=== PATIENT | female | born 1970 | race Caucasian/White ===

== ENCOUNTER 2017-08-03 07:21 | Day surgery (SDC) | payer OTHER ==
[~2017-08-03] VITALS: Ht 154.9 cm; Wt 62.6 kg
[~2017-08-03 07:21] MED LIST: ACYC800; ALBU90OI6; ALBU90OI61; AMIT10; ASACOL HD800 MG PO; AZIT250 PO; Amoxicillin875 MG PO; Apriso0.375 GM; Apriso0.375 GM PO; BUTASPCAFT PO; CALCAVITD PO; CETI5 PO; CYAN1000I; CYCL10; CYCL10 PO; Chest Congesti400 MG; ERGO50000; Esgic Tablet1 EACH PO; FIORICET 50-301 EACH; FLUT.05NI; FOLI1; FOLI1 PO; HYDHOMSY PO; HYDR1TAB94; HYDR1TAB94 PO; INDO50 PO; LORA10 PO; MECL25 PO; MESA400ER PO; METPRE4DP PO; MONT10T; MONT10T PO; MULVITMINF PO; NAPR500; Naprosyn500 MG PO; Norco 5-325 Ta1 EACH PO; PANT40; PANT40 PO; PRED10 PO; Percocet 5-3251 EACH PO; Valium5 MG PO; Valtrex1000 MG; Vibramycin100 MG PO
[2017-08-03] MEDS ORDERED: CLARITIN10 MG (07:50)
== END 2017-08-03 09:36 | disposition home or self-care (01) ==
LOC: ORSCSDS 07:21
PROVIDERS: Internal Medicine Gastroenterology
PROC: 0DJD8ZZ Inspection of Lower Intestinal Tract, Via Natural or Artificial Opening Endoscopic (ICD-10-PCS; principal; 2017-08-03 08:30)
DX: K51.90 Ulcerative colitis, unspecified, without complications (principal); K57.30 Diverticulosis of large intestine without perforation or abscess without bleeding; Z86.010 Personal history of colon polyps
CPT/HCPCS: J7120

== ENCOUNTER → 2017-08-24 | Outpatient (CLI) | payer OTHER ==
[~2017-08-24] MED LIST changes: +CLARITIN10 MG
[2017-08-24 11:11] LABS: BASOPHILS ABSOLUTE AUTO 0.01 K/mm3 (0.00-0.23); BASOPHILS PERCENT AUTO 0 % (0-2); EOSINOPHILS ABSOLUTE AUTO 0.06 K/mm3 (0.00-0.68); EOSINOPHILS PERCENT AUTO 1 % (0-6); Hematocrit 38.9 % (33.0-51.0); Hemoglobin 13.2 g/dL (11.5-16.0); IMMATURE GRAN ABSOLUTE AUTO 0.01 K/mm3 (0.00-0.10); IMMATURE GRAN PERCENT AUTO 0 % (0-1); LYMPHOCYTES ABSOLUTE AUTO 0.92 K/mm3 (0.84-5.20); LYMPHOCYTES PERCENT AUTO 20 % (21-46); MONOCYTES ABSOLUTE AUTO 0.48 K/mm3 (0.16-1.47); MONOCYTES PERCENT AUTO 11 % (4-13); Mean Corpuscular HGB Conc 33.9 g/dL (31.5-36.5); Mean Corpuscular Volume 97 fL (80-100); Mean Platelet Volume 10.9 fL (9.1-12.4); NEUTROPHILS ABSOLUTE AUTO 3.07 K/mm3 (1.96-9.15); NEUTROPHILS PERCENT AUTO 68 % (41-73); Platelet Count 194 K/mm3 (150-400); RDW Coefficient Variation 12.6 % (11.7-14.2); RDW Standard Deviation 45.2 fL (35.1-46.3); White Blood Cell Count 4.55 K/mm3 (4.00-11.30)
[2017-08-24 11:25] LABS: Alanine Aminotransfer (ALT/SGP 21 U/L (12-78); Albumin, Blood 3.6 g/dL (3.4-5.0); Albumin/Globulin Ratio 0.9 (0.8-1.8); Alk Phos 60 U/L (40-126); Anion Gap 10 mmol/L (6-16); Aspartate Aminotrans (AST/SGOT 19 U/L (12-37); Bilirubin, Total 0.3 mg/dL (0.1-1.0); Blood Urea Nitrogen 12 mg/dL (8-24); CO2, Blood 26 mmol/L (21-32); Calcium, Blood 8.8 mg/dL (8.5-10.1); Chloride, Blood 104 mmol/L (98-108); Creatinine, Blood 0.75 mg/dL (0.40-1.00); Globulin, Blood 3.9 g/dL (2.2-4.0); Glomerular Filtration Rate >60 (60-); Glucose, Blood 102 mg/dL (70-99); Sodium, Blood 140 mmol/L (136-145); Total Protein, Blood 7.5 g/dL (6.4-8.2)
== END | disposition home or self-care (01) ==
LOC: LAB EV 11:08 → LAB SHORT 11:08
PROVIDERS: Family Medicine
DX: R10.9 Unspecified abdominal pain (principal)
CPT/HCPCS: 80053; 83690; 85025

== ENCOUNTER → 2018-03-15 | Outpatient (CLI) | payer OTHER | END | disposition home or self-care (01) | LOC: LAB SHORT 17:38 → LAB 17:38 | DX: A60.00 Herpesviral infection of urogenital system, unspecified (principal); B00.1 Herpesviral vesicular dermatitis; N89.8 Other specified noninflammatory disorders of vagina; E66.9 Obesity, unspecified | CPT/HCPCS: 87070; 87205 ==

== ENCOUNTER → 2018-05-03 | Outpatient (CLI) | payer OTHER ==
[2018-05-05 16:07] LABS: HPV 16 Negative (Negative); HPV 18 Negative (Negative); HPV OTHER HR TYPES Negative (Negative)
== END | disposition home or self-care (01) ==
LOC: LAB 18:54 → LAB SHORT 18:54
PROVIDERS: Nurse Practitioner Women's Health
DX: Z12.4 Encounter for screening for malignant neoplasm of cervix (principal); Z20.2 Contact with and (suspected) exposure to infections with a predominantly sexual mode of transmission; Z91.89 Other specified personal risk factors, not elsewhere classified
CPT/HCPCS: 87624; G0123

== ENCOUNTER 2018-06-21 21:28 | Emergency (ER) | payer OTHER ==
[~2018-06-21] VITALS: Ht 154.9 cm; Wt 71.2 kg
[2018-06-21] MEDS ORDERED: METPHE5 PO (21:41)
[2018-06-21] MEDS ORDERED: NYST237S MT (22:58)
== END 2018-06-22 01:27 | disposition home or self-care (01) ==
LOC: ER 21:28
DX: J02.9 Acute pharyngitis, unspecified (principal); Z79.899 Other long term (current) drug therapy; G43.909 Migraine, unspecified, not intractable, without status migrainosus
CPT/HCPCS: 70490; 99283-25; A9270-GY; J1100

== ENCOUNTER → 2018-06-30 | Outpatient (CLI) | payer OTHER ==
[~2018-06-30] MED LIST changes: +METPHE5 PO; +NYST237S MT
== END ==
LOC: LAB SHORT 18:29 → LAB 18:29
DX: Z51.81 Encounter for therapeutic drug level monitoring (principal); Z79.899 Other long term (current) drug therapy
CPT/HCPCS: G0480

== ENCOUNTER 2018-08-18 12:40 | Day surgery (SDC) | payer OTHER ==
[~2018-08-18] VITALS: Ht 154.9 cm; Wt 67.6 kg
[~2018-08-18 12:40] MED LIST changes: +ALBU90OI61 INH; +Loratadine10 MG PO; +METPHE10 PO; +MIRENA1 EACH VAG; +PANT20 PO; +Valtrex1000 MG PO
--- NOTE | 2018-08-18 13:16 | NUR ---
08/18/18 1316 Dimitris Sy IN LOBBY, UPDATED PT AND FAMILY MEMBER OF THE DELAY. BOTH STATE AN UNDERSTANDING.
== END 2018-08-18 18:10 | disposition home or self-care (01) ==
LOC: ORSCSDS 12:40
PROVIDERS: Internal Medicine Gastroenterology
PROC: 0DBH8ZX Excision of Cecum, Via Natural or Artificial Opening Endoscopic, Diagnostic (ICD-10-PCS; principal; 2018-08-18 14:15)
PROC: 0DBP8ZX Excision of Rectum, Via Natural or Artificial Opening Endoscopic, Diagnostic (ICD-10-PCS; principal; 2018-08-18 14:15)
PROC: 0DBM8ZX Excision of Descending Colon, Via Natural or Artificial Opening Endoscopic, Diagnostic (ICD-10-PCS; principal; 2018-08-18 14:15)
PROC: 0DBL8ZX Excision of Transverse Colon, Via Natural or Artificial Opening Endoscopic, Diagnostic (ICD-10-PCS; principal; 2018-08-18 14:15)
PROC: 0DB68ZX Excision of Stomach, Via Natural or Artificial Opening Endoscopic, Diagnostic (ICD-10-PCS; principal; 2018-08-18 14:15)
PROC: 0DBN8ZX Excision of Sigmoid Colon, Via Natural or Artificial Opening Endoscopic, Diagnostic (ICD-10-PCS; principal; 2018-08-18 14:15)
DX: K51.90 Ulcerative colitis, unspecified, without complications (principal); D12.4 Benign neoplasm of descending colon; D12.3 Benign neoplasm of transverse colon; K63.5 Polyp of colon; K62.1 Rectal polyp; K57.30 Diverticulosis of large intestine without perforation or abscess without bleeding; R11.2 Nausea with vomiting, unspecified; R07.0 Pain in throat; K25.9 Gastric ulcer, unspecified as acute or chronic, without hemorrhage or perforation; Z79.899 Other long term (current) drug therapy
CPT/HCPCS: 88305; 88342; J2704; J3010; J7120

== ENCOUNTER 2019-08-25 17:14 | Emergency (ER) | payer OTHER ==
[~2019-08-25] VITALS: Ht 154.9 cm; Wt 64.4 kg
== END 2019-08-25 21:11 | disposition home or self-care (01) ==
LOC: ER 17:14
DX: S05.02XA Injury of conjunctiva and corneal abrasion without foreign body, left eye, initial encounter (principal); Z79.899 Other long term (current) drug therapy; X58.XXXA Exposure to other specified factors, initial encounter
CPT/HCPCS: 99283

== ENCOUNTER 2020-12-11 21:41 | Inpatient (IN) | payer OTHER ==
[~2020-12-11] VITALS: Ht 154.9 cm; Wt 68.2 kg
[~2020-12-11 21:41] MED LIST changes: +ONDA4ODT MM
[2020-12-11 23:37] LABS: BASOPHILS ABSOLUTE AUTO 0.03 K/mm3 (0.00-0.23); BASOPHILS PERCENT AUTO 0 % (0-2); EOSINOPHILS ABSOLUTE AUTO 0.12 K/mm3 (0.00-0.68); EOSINOPHILS PERCENT AUTO 1 % (0-6); Hematocrit 39.2 % (33.0-51.0); IMMATURE GRAN ABSOLUTE AUTO 0.03 K/mm3 (0.00-0.10); IMMATURE GRAN PERCENT AUTO 0 % (0-1); LYMPHOCYTES ABSOLUTE AUTO 2.66 K/mm3 (0.84-5.20); LYMPHOCYTES PERCENT AUTO 22 % (21-46); MONOCYTES ABSOLUTE AUTO 0.93 K/mm3 (0.16-1.47); MONOCYTES PERCENT AUTO 8 % (4-13); Mean Corpuscular HGB 31.7 pg (26.0-34.0); Mean Corpuscular HGB Conc 33.2 g/dL (31.5-36.5); Mean Corpuscular Volume 96 fL (80-100); Mean Platelet Volume 12.1 fL (9.1-12.4); NEUTROPHILS ABSOLUTE AUTO 8.63 K/mm3 (1.96-9.15); NEUTROPHILS PERCENT AUTO 70 % (41-73); Platelet Count 315 K/mm3 (150-400); RDW Coefficient Variation 12.4 % (11.7-14.2)
[2020-12-11] MEDS ORDERED: METPHE20 PO (23:46)
[2020-12-11 23:49] LABS: Alanine Aminotransfer (ALT/SGP 32 U/L (12-78); Albumin, Blood 3.8 g/dL (3.4-5.0); Albumin/Globulin Ratio 0.8 (0.8-1.8); Alk Phos 61 U/L (50-136); Anion Gap 5 mmol/L (6-16); Aspartate Aminotrans (AST/SGOT 23 U/L (12-37); Bilirubin, Total 0.4 mg/dL (0.1-1.0); Blood Urea Nitrogen 11 mg/dL (8-24); Bun/Creatinine Ratio 14.1 (12.0-20.0); CO2, Blood 28 mmol/L (21-32); Chloride, Blood 105 mmol/L (98-108); Creatinine, Blood 0.78 mg/dL (0.40-1.00); Globulin, Blood 4.7 g/dL (2.2-4.0); Glomerular Filtration Rate >60 (60-); Glucose, Blood 99 mg/dL (70-99); Potassium, Blood 3.9 mmol/L (3.5-5.5); Sodium, Blood 138 mmol/L (136-145); Total Protein, Blood 8.5 g/dL (6.4-8.2)
[2020-12-12 02:12] LABS: SARS-Cov-2 (COVID-19) PCR, MMC NEGATIVE (NEGATIVE)
--- NOTE | 2020-12-12 04:56 | NUR ---
PATIENT ARRIVED TO ROOM 339 WITH ACUTE LEFT SIDED ABD PAIN THAT SHE'D HAD FOR ABOUT A WEEK. BRANDAN SHARES A HOME WITH HER MOTHER WHO WAS HOSPITALIZED LAST WEEK. SHE IS VERY ANXIOUS ABOUT THE LEVEL OF HER PAIN AND WORRIES THAT IT MAY GET WORSE. SHE SEES DR ATKINSON FOR HER ULCERATIVE COLITIS, AND WAS SUPPOSED TO SEE HIM NEXT WEEK. AFTER 0.25MCG DOSE OF FENTANYL ON ARRIVAL, PATIENT HAS BEEN NOSTLY SOMNOLENT
[2020-12-12 04:57] LABS: BASOPHILS ABSOLUTE AUTO 0.03 K/mm3 (0.00-0.23); BASOPHILS PERCENT AUTO 0 % (0-2); EOSINOPHILS ABSOLUTE AUTO 0.06 K/mm3 (0.00-0.68); EOSINOPHILS PERCENT AUTO 1 % (0-6); Hematocrit 36.7 % (33.0-51.0); Hemoglobin 12.1 g/dL (11.5-16.0); IMMATURE GRAN ABSOLUTE AUTO 0.04 K/mm3 (0.00-0.10); IMMATURE GRAN PERCENT AUTO 0 % (0-1); LYMPHOCYTES ABSOLUTE AUTO 1.79 K/mm3 (0.84-5.20); LYMPHOCYTES PERCENT AUTO 17 % (21-46); MONOCYTES PERCENT AUTO 8 % (4-13); Mean Corpuscular HGB 31.8 pg (26.0-34.0); Mean Corpuscular Volume 96 fL (80-100); Mean Platelet Volume 11.2 fL (9.1-12.4); NEUTROPHILS ABSOLUTE AUTO 7.88 K/mm3 (1.96-9.15); NEUTROPHILS PERCENT AUTO 74 % (41-73); Platelet Count 258 K/mm3 (150-400); RDW Coefficient Variation 12.4 % (11.7-14.2); RDW Standard Deviation 43.9 fL (35.1-46.3); Red Blood Cell Count 3.81 M/mm3 (3.80-5.20)
[2020-12-12 05:40] LABS: Alanine Aminotransfer (ALT/SGP 22 U/L (12-78); Albumin, Blood 3.2 g/dL (3.4-5.0); Albumin/Globulin Ratio 0.7 (0.8-1.8); Alk Phos 53 U/L (50-136); Anion Gap 6 mmol/L (6-16); Aspartate Aminotrans (AST/SGOT 11 U/L (12-37); Bilirubin, Total 0.5 mg/dL (0.1-1.0); Blood Urea Nitrogen 9 mg/dL (8-24); Bun/Creatinine Ratio 11.3 (12.0-20.0); CO2, Blood 25 mmol/L (21-32); Calcium, Blood 8.9 mg/dL (8.5-10.1); Chloride, Blood 108 mmol/L (98-108); Globulin, Blood 4.3 g/dL (2.2-4.0); Glomerular Filtration Rate >60 (60-); Glucose, Blood 124 mg/dL (70-99); Potassium, Blood 3.7 mmol/L (3.5-5.5); Sodium, Blood 139 mmol/L (136-145); Total Protein, Blood 7.5 g/dL (6.4-8.2)
--- NOTE | 2020-12-12 18:18 | NUR ---
Alert and oriented x3, continue on NS at 75ml/hr for hydration. Currently NPO. C/O left lower quadrant pain consistently with diverticulosis. Dilaudid was given for pain management , it was effective. vital signs are stable. Continue on ABO IV therapy , no adverse effects noted. one person assist with ADLS. Continue to monitor.
[2020-12-13 04:27] LABS: BASOPHILS ABSOLUTE AUTO 0.02 K/mm3 (0.00-0.23); BASOPHILS PERCENT AUTO 0 % (0-2); EOSINOPHILS ABSOLUTE AUTO 0.07 K/mm3 (0.00-0.68); EOSINOPHILS PERCENT AUTO 1 % (0-6); Hematocrit 34.8 % (33.0-51.0); Hemoglobin 11.5 g/dL (11.5-16.0); IMMATURE GRAN ABSOLUTE AUTO 0.01 K/mm3 (0.00-0.10); IMMATURE GRAN PERCENT AUTO 0 % (0-1); LYMPHOCYTES ABSOLUTE AUTO 2.13 K/mm3 (0.84-5.20); LYMPHOCYTES PERCENT AUTO 28 % (21-46); MONOCYTES ABSOLUTE AUTO 0.53 K/mm3 (0.16-1.47); MONOCYTES PERCENT AUTO 7 % (4-13); Mean Corpuscular HGB 31.7 pg (26.0-34.0); Mean Corpuscular Volume 96 fL (80-100); Mean Platelet Volume 11.2 fL (9.1-12.4); NEUTROPHILS ABSOLUTE AUTO 4.75 K/mm3 (1.96-9.15); NEUTROPHILS PERCENT AUTO 63 % (41-73); Platelet Count 228 K/mm3 (150-400); RDW Coefficient Variation 12.2 % (11.7-14.2); RDW Standard Deviation 42.9 fL (35.1-46.3); Red Blood Cell Count 3.63 M/mm3 (3.80-5.20); White Blood Cell Count 7.51 K/mm3 (4.00-11.30)
[2020-12-13 04:35] LABS: Anion Gap 8 mmol/L (6-16); Blood Urea Nitrogen 6 mg/dL (8-24); Bun/Creatinine Ratio 10.1 (12.0-20.0); CO2, Blood 24 mmol/L (21-32); Calcium, Blood 8.8 mg/dL (8.5-10.1); Chloride, Blood 109 mmol/L (98-108); Creatinine, Blood 0.59 mg/dL (0.40-1.00); Glomerular Filtration Rate >60 (60-); Glucose, Blood 74 mg/dL (70-99); Potassium, Blood 3.5 mmol/L (3.5-5.5); Sodium, Blood 141 mmol/L (136-145)
--- NOTE | 2020-12-13 08:52 | NUR ---
Dayana feeling better this evening. required medication once late in evening for abd pain. Ongoing headache was tolerable. Dayana had CBG of 79 this morning, and was still NPO for diverticulitis. MD notified and 1 amp of D 50 given to cover. No other changes overnight
--- NOTE | 2020-12-13 17:39 | NUR ---
SHIFT SUMMARY PATIENT IS PLEASENT AND ALERT AND ORIENTED X4. PATIENT HAS HAD NO COMPLAINTS OF PAIN, NAUSEA, VOMITTING. PATIENT HAS COMPLAINED OF ABDOMINAL CRAMPING AFTER CONSUMPTION OF CLEAR LIQUIDS. PATIENT STATED "IT HAS RESOLVED" PATIENT HAS TOLERATED CLEAR LIQUIDS WELL AND IS EAGER TO ADVANCEMENT OF DIET. VITAL SIGNS WNL. WILL CONTINUE TO MONITOR UNTIL END OF SHIFT.
--- NOTE | 2020-12-14 06:45 | NUR ---
SHIFT SUMMARY PATIENT ALERT AND ORIENTED. NO COMPLAINTS OF PAIN OR SHORTNESS OF BREATH. NO ACUTE ISSUES NOTED OVERNIGHT. CALL LIGHT WITHIN REACH. REPORT GIVEN TO ONCOMING RN.
--- NOTE | 2020-12-14 14:10 | NUR ---
TRANSFERING CARE. PT AOX4 AND COOPERATIVE OF CARE. PT STATED SHE STILL HAS MILD ABD PAIN, BUT STATED SHE DID NOT REQUIRE PAIN MEDICATON. PT HAS BEEN DRINKING HER CLEAR LIQUIDS. NO DISTRESS NOTED AND INDEPENDENT IN ROOM.
--- NOTE | 2020-12-14 18:26 | NUR ---
SHIFT SUMMARY PATIENT HAS BEEN PLEASENT AND COOPERATIVE WITH CARE THIS SHIFT. PATIENT IS A/OX4. PATIENT HAS BEEN TOLERATING CLEAR LIQUIDS WELL AND STATED "WANT TO BE MORE AGGRESSIVE WITH DIET BUT WILL TAKE IT SLOW FOR NOW". BED IN LOCKED AND LOWEST POSITION AND WILL CONTINUE TO MONITOR UNTIL END OF SHIFT.
--- NOTE | 2020-12-15 06:36 | NUR ---
SHIFT SUMMARY PATIENT ALERT AND ORIENTED. HAD NO COMPLAINTS OF PAIN OR SHORTNESS OF BREATH. NO ACUTE ISSUES OVERNIGHT. CALL LIGHT WITHIN REACH. REPORT GIVEN TO ONCOMING RN.
[2020-12-15] MEDS ORDERED: ONDA4ODT MM (11:50)
[2020-12-15] MEDS ORDERED: Acetaminophen650 M1 PO (11:51)
[2020-12-15] MEDS ORDERED: VISBIOME 112.51 EACH PO (11:52)
[2020-12-15] MEDS ORDERED: AUGMENTIN 500-1 EACH PO (11:55)
[2020-12-15] MEDS ORDERED: Norco 5-325 Ta1 EACH PO (11:56)
--- NOTE | 2020-12-15 13:46 | NUR ---
PT DISCHARGED AT 1315 WITH ALL PAPERWORK REVIEWED AND EDUCATIONAL MATERIAL SENT HOME. PT DENIED ANY PAIN AND WAS INDEPENDENT IN ROOM. NO DISTRESS NOTED AND ESCORTED OUT VIA WHEELCHAIR.
== END 2020-12-15 13:12 | disposition home or self-care (01) | DRG 392 ==
LOC: ER 21:41 → MEDS 12-12 01:50
PROVIDERS: Emergency Medicine; Internal Medicine; ADMIT Internal Medicine
DX: K57.32 Diverticulitis of large intestine without perforation or abscess without bleeding (principal); G43.909 Migraine, unspecified, not intractable, without status migrainosus; E86.0 Dehydration; Z79.899 Other long term (current) drug therapy; Z98.890 Other specified postprocedural states
CPT/HCPCS: 36415; 74176; 80048; 80053; 81025; 82947; 85025; 96365; 96375; 99285-25; A9270; J0295; J1170; J1650; J2543; J3010; J7030; J7050; U0004

== ENCOUNTER 2020-12-23 12:00 | Inpatient (IN) | payer OTHER ==
[~2020-12-23] VITALS: Ht 154.9 cm; Wt 64.5 kg
[~2020-12-23 12:00] MED LIST changes: +AUGMENTIN 500-1 EACH PO; +Acetaminophen650 M1 PO; +VISBIOME 112.51 EACH PO; -Valtrex1000 MG PO
[2020-12-23 13:13] LABS: Source, Urine Clean Catch
[2020-12-23 13:40] LABS: BASOPHILS ABSOLUTE AUTO 0.04 K/mm3 (0.00-0.23); BASOPHILS PERCENT AUTO 0 % (0-2); EOSINOPHILS ABSOLUTE AUTO 0.09 K/mm3 (0.00-0.68); EOSINOPHILS PERCENT AUTO 1 % (0-6); Hematocrit 39.4 % (33.0-51.0); IMMATURE GRAN ABSOLUTE AUTO 0.04 K/mm3 (0.00-0.10); IMMATURE GRAN PERCENT AUTO 0 % (0-1); LYMPHOCYTES ABSOLUTE AUTO 2.77 K/mm3 (0.84-5.20); LYMPHOCYTES PERCENT AUTO 29 % (21-46); MONOCYTES ABSOLUTE AUTO 0.57 K/mm3 (0.16-1.47); MONOCYTES PERCENT AUTO 6 % (4-13); Mean Corpuscular HGB 31.6 pg (26.0-34.0); Mean Corpuscular Volume 96 fL (80-100); Mean Platelet Volume 11.7 fL (9.1-12.4); NEUTROPHILS ABSOLUTE AUTO 5.93 K/mm3 (1.96-9.15); NEUTROPHILS PERCENT AUTO 63 % (41-73); Platelet Count 296 K/mm3 (150-400); RDW Coefficient Variation 12.4 % (11.7-14.2); RDW Standard Deviation 43.4 fL (35.1-46.3); Red Blood Cell Count 4.12 M/mm3 (3.80-5.20); White Blood Cell Count 9.44 K/mm3 (4.00-11.30)
[2020-12-23 13:42] LABS: Appearance, Urine Clear (Clear); Bilirubin, Urine Neg (Neg); Blood, Urine 2+ (Neg); Color, Urine Amber (P-Yellow); Glucose Qualitative, Urine Neg (Neg); Ketones, Urine Neg (Neg); Leukocyte Esterase, Urine 1+ (Neg); Nitrite, Urine Neg (Neg); Protein, Urine 1+ (Neg); Specific Gravity, Urine 1.015 (1.003-1.022); Urobilinogen, Urine NORM (Normal)
[2020-12-23 14:06] LABS: Alanine Aminotransfer (ALT/SGP 28 U/L (12-78); Albumin, Blood 3.7 g/dL (3.4-5.0); Albumin/Globulin Ratio 0.8 (0.8-1.8); Alk Phos 68 U/L (50-136); Anion Gap 8 mmol/L (6-16); Aspartate Aminotrans (AST/SGOT 16 U/L (12-37); Bilirubin, Total 0.6 mg/dL (0.1-1.0); Blood Urea Nitrogen 7 mg/dL (8-24); Bun/Creatinine Ratio 9.5 (12.0-20.0); CO2, Blood 27 mmol/L (21-32); Calcium, Blood 10.2 mg/dL (8.5-10.1); Chloride, Blood 104 mmol/L (98-108); Creatinine, Blood 0.74 mg/dL (0.40-1.00); Globulin, Blood 4.7 g/dL (2.2-4.0); Glomerular Filtration Rate >60 (60-); Glucose, Blood 93 mg/dL (70-99); Potassium, Blood 3.6 mmol/L (3.5-5.5); Sodium, Blood 139 mmol/L (136-145); Total Protein, Blood 8.4 g/dL (6.4-8.2)
[2020-12-23 14:19] LABS: Bacteria Few /hpf; Mucus Mod (0-Heavy); Squamous Epithelial Cells Few /hpf (Few)
[2020-12-23] MEDS ORDERED: Cetirizine HCl10 MG PO (16:33)
[2020-12-23] MEDS ORDERED: Valtrex1000 MG PO (16:35)
[2020-12-23] MEDS ORDERED: FAMO20 PO (16:35)
[2020-12-23] MEDS ORDERED: METPHE20 PO (16:36)
[2020-12-23] MEDS ORDERED: FOLI1 PO (16:36)
--- NOTE | 2020-12-23 18:37 | NUR ---
PT ADMITTED TO FLOOR AT 1805. STATES PAIN IN ABD. DID RECENTLY RECEIVE DILAUDID. NOT AVAIL UNTIL 1930. ABLE TO WALK TO BATHROOM SBA TO IND. IS NPO. H/R REG, NO MURMER NOTED. NO TELE. LUNGS CLEAR, RESP EASY. UNLABORED. ON R.A. BT HYPER. PT STATES WAS LIQUID DIET.AND WAS TOLD IN ER THAT DR JIMENES WOULD SEE TOMORROW. BED IN LOW POSITOIN, CALL LITE IN REACH, CALLS APPROP
--- NOTE | 2020-12-24 04:45 | NUR ---
SHIFT SUMMARY AOX4. VSS. 7TH EPISODE DIVERTICULITIS SINCE AUGUST PER PT. REPORTS 10/05 LUQ & LLQ ABD PAIN, MEDICATED 2X c 1MG IV DILAUDID & PT REPORTS PAIN LEVEL DROPPING 05/08, STATES TOLERABLE. DENIES NAUSEA DURING ASSESSMENT. ABD VERY TENDER TO PALPATION LEFT QUADRANTS. NO BM THIS SHIFT. CURRENTLY STRICT NPO PER DR COVINGTON ORDERS. GI CONSULTED. CALL LIGHT IN REACH & PT ABLE TO MAKE NEEDS KNOWN. WCTM.
[2020-12-24 05:12] LABS: Anion Gap 4 mmol/L (6-16); Blood Urea Nitrogen 9 mg/dL (8-24); Bun/Creatinine Ratio 13.1 (12.0-20.0); CO2, Blood 27 mmol/L (21-32); Calcium, Blood 9.3 mg/dL (8.5-10.1); Chloride, Blood 108 mmol/L (98-108); Creatinine, Blood 0.69 mg/dL (0.40-1.00); Glomerular Filtration Rate >60 (60-); Glucose, Blood 78 mg/dL (70-99); Sodium, Blood 139 mmol/L (136-145)
--- NOTE | 2020-12-24 17:22 | NUR ---
PATIENT IS ALERT AND ORIENTED X 4. SHE REPORTED ABD PAIN THIS AM AND WAS GIVEN DILAUDID. SHE REPORTED [place] 8/10 DUE TO DILAUDID AND WAS GIVEN FENTANYL BY NIGHT NURSE. HEADACHE SLOWLY RESOLVED. SHE WAS MEDICATED FOR NAUSEA THIS AM. AM MEDS WAS NOT ADMINISTERED DUE TO THE PATIENT STATING SHE COULD NOT TOLERATED THEM THIS MORNING. LATER AROUND LUNCH TIME THE PATIENT STATED SHE WAS STARTING TO FEEL BETTER HEADACHE AND NAUSEA WAS RESOLVED. SHE WAS ADVANCED TO CLEAR LIQ DIET. SHE IS OOB AD JUDY WITH ASSIST WITH IV IF NEEDED. SHE APPEARS TO BE IN IMPROVED MOOD THIS AFTERNOON. DIETITIAN SPOKE WITH THE PT ABOUT DIVERTICULITUS THIS AFTERNOON. SHE IS NOT IN ACUTE DISTRESS. WILL CONTINUE TO MONITOR.
[2020-12-25 05:24] LABS: BASOPHILS ABSOLUTE AUTO 0.03 K/mm3 (0.00-0.23); BASOPHILS PERCENT AUTO 1 % (0-2); EOSINOPHILS ABSOLUTE AUTO 0.09 K/mm3 (0.00-0.68); EOSINOPHILS PERCENT AUTO 1 % (0-6); Hematocrit 33.1 % (33.0-51.0); Hemoglobin 10.8 g/dL (11.5-16.0); IMMATURE GRAN ABSOLUTE AUTO 0.01 K/mm3 (0.00-0.10); IMMATURE GRAN PERCENT AUTO 0 % (0-1); LYMPHOCYTES ABSOLUTE AUTO 2.32 K/mm3 (0.84-5.20); LYMPHOCYTES PERCENT AUTO 36 % (21-46); MONOCYTES ABSOLUTE AUTO 0.53 K/mm3 (0.16-1.47); MONOCYTES PERCENT AUTO 8 % (4-13); Mean Corpuscular HGB 31.2 pg (26.0-34.0); Mean Corpuscular HGB Conc 32.6 g/dL (31.5-36.5); Mean Corpuscular Volume 96 fL (80-100); Mean Platelet Volume 11.9 fL (9.1-12.4); NEUTROPHILS PERCENT AUTO 54 % (41-73); Platelet Count 210 K/mm3 (150-400); RDW Coefficient Variation 12.2 % (11.7-14.2); RDW Standard Deviation 42.2 fL (35.1-46.3); Red Blood Cell Count 3.46 M/mm3 (3.80-5.20); White Blood Cell Count 6.48 K/mm3 (4.00-11.30)
--- NOTE | 2020-12-25 05:40 | NUR ---
SHIFT SUMMARY NO ACUTE CHANGES THIS SHIFT. AOX4. VSS. REPORTS 5/10 PAIN L QUADRANTS ABD. MEDICATED 2X c 50MCG FENTANYL, PT STATES RELIEF FROM PAIN. TOLERATING CLEAR LIQUID DIET, NO N/V. PER PT PLAN IS TO HAVE COLONOSCOPY. CALL LIGHT IN REACH. WCTM.
[2020-12-25 11:43] LABS: SARS-Cov-2 (COVID-19) PCR, MMC NEGATIVE (NEGATIVE)
--- NOTE | 2020-12-25 12:57 | NUR ---
12/25/20 Araceli Hall History, Chart, Medications and Allergies reviewed before start of procedure. 3-LEAD EKG REVIEWED WITH PHYSICIAN PRIOR TO START OF PROCEDURE. MONITOR INTACT WITH CONTINUOUS PULSE OXIMETRY AND INTERMITTENT BP. O2 VIA N/C INTACT THROUGHOUT SEDATION/PROCEDURE. PATIENT DETERMINED TO BE ASA APPROPRIATE FOR PROPOFOL SEDATION PRIOR TO START OF PROCEDURE BY DR. JIMENES.
--- NOTE | 2020-12-25 13:43 | NUR ---
PATIENT RETURNED TOROOM FROM THE OR. TRANSFERED SELF FROM STRETCHER AND WENT INTO THE BATHROOM. APPEARS TO BE DOING WELL.
--- NOTE | 2020-12-25 15:39 | NUR ---
ALERT AND ORIENTED; SOME ANXIETY NOTED HOWEVER PATIENT IS PLEASANT AND COOPERATIVE WITH STAFF. VITALS STABLE. PATIENT CONTINUES ON IV ABX WITHOUT S/SX OF ADVERSE REACTIONS NOTED OR REPORTED. INDEPENDENT IN ROOM. PATIENT TO REMAIN IN HOSPITAL OVERNIGHT TO SEE HOW SHE TOLERATES ADVANCED DIET OF FULL LIQUID FOOD. PATIENT NOW RESTING IN BED S/P PROCEDURE WITH DR JIMENES. CALL LIGHT WITHIN REACH.
[2020-12-25 20:09] LABS: Hematocrit 34.8 % (33.0-51.0); Hemoglobin 11.5 g/dL (11.5-16.0)
--- NOTE | 2020-12-26 02:05 | NUR ---
DC'D IV IN R AC, PER PT, R HAND IV INFILTRATED IN OR AND HOME SECURITY PROFESSIONAL PLACED A NEW ONE IN R AC. PT REPORTS THAT IT IS NOW BURNING.
[2020-12-26 04:37] LABS: Hemoglobin 11.2 g/dL (11.5-16.0)
--- NOTE | 2020-12-26 07:04 | NUR ---
PATIENT ALERT AND ORIENTED X4. CONTINUES ON IV ANTIBIOTIC ZOSYN. 12 MIDNIGHT IV ZOSYN INFILTRATED AND SIDE WAS CHANGED AND CONTINUED TO INFUSED WITH NO FURTHER ISSUE. AMBULATES TO THE BATHROOM, VOIDED X2. PATIENT DID NOT COMPLAIN OF PAIN, NAUSEA OR ANY DISTRESS. WILL WILL CONTINUE TO MONITOR.
[2020-12-26] MEDS ORDERED: ONDA4ODT MM (12:49)
[2020-12-26] MEDS ORDERED: OXAYDO5 M1 PO (12:50)
[2020-12-26] MEDS ORDERED: AMOCLA875 PO (12:50)
--- NOTE | 2020-12-26 18:16 | NUR ---
PATIENT WAS DISCHARGED TO HOME. SHE WAS ALERT AND ORIENTED X 4. SHE WAS MEDICATED TODAY X1 FOR ABD PAIN AND INTERVENTION WAS EFFECTIVE. SHE WAS VERY PLEASANT AND COOPERATIVE TODAY AND MOST OF DAY WAS UNEVENTFUL EXCEPT FOR PAIN X 1. IV WAS REMOVED AND SITE WAS UNREMARKABLE. SHE WAS PROVIDED DISCHARGE INSTRUCTIONS AND PRESCRIPTION FOR PAIN MEDICATION. SHE DID NOT HAVE ANY QUESTIONS AT THE TIME OF DISCHARGE.
== END 2020-12-26 14:30 | disposition home or self-care (01) | DRG 392 ==
LOC: ER 12:00 → MEDS 16:48
PROVIDERS: Family Medicine; Internal Medicine Gastroenterology; Physician Assistant; ADMIT Internal Medicine
PROC: 0DJD8ZZ Inspection of Lower Intestinal Tract, Via Natural or Artificial Opening Endoscopic (ICD-10-PCS; principal; 2020-12-25 13:00)
DX: K57.30 Diverticulosis of large intestine without perforation or abscess without bleeding (principal); Z20.822 Contact with and (suspected) exposure to COVID-19; D64.9 Anemia, unspecified; G43.909 Migraine, unspecified, not intractable, without status migrainosus; Z98.890 Other specified postprocedural states; Z87.19 Personal history of other diseases of the digestive system; Z79.899 Other long term (current) drug therapy
CPT/HCPCS: 36415; 74177; 80048; 80053; 81001; 83690; 85014; 85018; 85025; 87086; 96374; 96375; 99285-25; A9270; J1170; J1650; J2405; J2543; J2704; J3010; J7050; J7120; Q9967; U0004

== ENCOUNTER 2021-02-11 06:50 | Day surgery (SDC) | payer OTHER ==
[~2021-02-11] VITALS: Ht 154.9 cm; Wt 58.2 kg
[~2021-02-11 06:50] MED LIST changes: +AMOCLA875 PO; +Cetirizine HCl10 MG PO; +FAMO20 PO; +METPHE20 PO; +OXAYDO5 M1 PO; +Valtrex1000 MG PO
[2021-02-11] MEDS ORDERED: ALBU90OI (07:21)
== END 2021-02-11 09:00 | disposition home or self-care (01) ==
LOC: ORSCSDS 06:50
PROVIDERS: Internal Medicine Gastroenterology
PROC: 0DBE8ZX Excision of Large Intestine, Via Natural or Artificial Opening Endoscopic, Diagnostic (ICD-10-PCS; principal; 2021-02-11 08:00)
DX: K51.00 Ulcerative (chronic) pancolitis without complications (principal); K57.30 Diverticulosis of large intestine without perforation or abscess without bleeding; K64.8 Other hemorrhoids; K21.9 Gastro-esophageal reflux disease without esophagitis; Z79.899 Other long term (current) drug therapy
CPT/HCPCS: 88305; J2250; J2704; J7120

== ENCOUNTER 2021-03-13 18:14 | Inpatient (IN) | payer OTHER ==
[~2021-03-13] VITALS: Ht 154.9 cm; Wt 58.6 kg
[~2021-03-13 18:14] MED LIST changes: +ALBU90OI
[2021-03-13 18:53] LABS: BASOPHILS ABSOLUTE AUTO 0.03 K/mm3 (0.00-0.23); BASOPHILS PERCENT AUTO 0 % (0-2); EOSINOPHILS ABSOLUTE AUTO 0.05 K/mm3 (0.00-0.68); EOSINOPHILS PERCENT AUTO 1 % (0-6); Hematocrit 37.9 % (33.0-51.0); Hemoglobin 12.5 g/dL (11.5-16.0); IMMATURE GRAN ABSOLUTE AUTO 0.03 K/mm3 (0.00-0.10); IMMATURE GRAN PERCENT AUTO 0 % (0-1); LYMPHOCYTES ABSOLUTE AUTO 2.03 K/mm3 (0.84-5.20); LYMPHOCYTES PERCENT AUTO 21 % (21-46); MONOCYTES ABSOLUTE AUTO 0.65 K/mm3 (0.16-1.47); MONOCYTES PERCENT AUTO 7 % (4-13); Mean Corpuscular HGB 31.9 pg (26.0-34.0); Mean Corpuscular Volume 97 fL (80-100); Mean Platelet Volume 11.3 fL (9.1-12.4); NEUTROPHILS ABSOLUTE AUTO 7.01 K/mm3 (1.96-9.15); NEUTROPHILS PERCENT AUTO 72 % (41-73); Platelet Count 251 K/mm3 (150-400); RDW Coefficient Variation 13.8 % (11.7-14.2); RDW Standard Deviation 49.4 fL (35.1-46.3); Red Blood Cell Count 3.92 M/mm3 (3.80-5.20)
[2021-03-13 19:04] LABS: Alanine Aminotransfer (ALT/SGP 15 U/L (12-78); Albumin, Blood 3.7 g/dL (3.4-5.0); Albumin/Globulin Ratio 0.9 (0.8-1.8); Alk Phos 57 U/L (50-136); Anion Gap 4 mmol/L (6-16); Aspartate Aminotrans (AST/SGOT 11 U/L (12-37); Bilirubin, Total 0.6 mg/dL (0.1-1.0); Blood Urea Nitrogen 12 mg/dL (8-24); Bun/Creatinine Ratio 20.6 (12.0-20.0); CO2, Blood 28 mmol/L (21-32); Calcium, Blood 9.6 mg/dL (8.5-10.1); Chloride, Blood 106 mmol/L (98-108); Creatinine, Blood 0.58 mg/dL (0.40-1.00); Globulin, Blood 3.9 g/dL (2.2-4.0); Glomerular Filtration Rate >60 (60-); Glucose, Blood 106 mg/dL (70-99); Potassium, Blood 3.6 mmol/L (3.5-5.5); Sodium, Blood 138 mmol/L (136-145); Total Protein, Blood 7.6 g/dL (6.4-8.2)
[2021-03-13 19:53] LABS: Source, Urine Clean Catch
[2021-03-13 19:56] LABS: Appearance, Urine Clear (Clear); Bilirubin, Urine Neg (Neg); Blood, Urine Neg (Neg); Color, Urine Yellow (P-Yellow); Glucose Qualitative, Urine Neg (Neg); Ketones, Urine Neg (Neg); Leukocyte Esterase, Urine 1+ (Neg); Nitrite, Urine Neg (Neg); Protein, Urine Neg (Neg); Specific Gravity, Urine 1.005 (1.003-1.022); Urobilinogen, Urine NORM (Normal)
[2021-03-13 20:05] LABS: Bacteria Rare /hpf; Red Blood Cells, Urine Not Seen /hpf (0-2); Squamous Epithelial Cells Rare /hpf (Few); White Blood Cells, Urine 0-2 /hpf (0-5)
--- NOTE | 2021-03-14 06:11 | NUR ---
PT'S BLOOD PRESSURE IS 96/48 AT THIS TIME. SHE REPORTS A 6/10 PAIN TO THE LEFT LOWER QUADRANT. PT CURRENTLY RECEIVING LR AT 125/HR. PT INFORMED THAT HER BLOOD PRESSURE IS SLIGHTLY TOO LOW FOR PAIN MEDICATION AT THIS TIME AND SHE IS AGREEABLE. BP WILL BE TAKEN AGAIN AND PAIN MEDICATION RE-EVALUATED AT THAT TIME.
--- NOTE | 2021-03-14 06:13 | NUR ---
BRICK YARD HAND SUMMARY ADMITTED FOR DIVERTICULITIS. PT IS FULL CODE. PT IS HOLDING IN THE ER. SHE COMPLAINS OF PAIN TO THE LEFT LOWER QUADRANT THAT WORSENS WITH AMBULATION. MEDICATED WITH IV FENTANYL X1. RECEIVING LR AT 125/HR. PT IS CURRENTLY NPO FOR BOWEL REST. PT IS ALERT AND ORIENTED. NO OTHER CONCERNS THIS SHIFT.
[2021-03-14 06:37] LABS: BASOPHILS ABSOLUTE AUTO 0.03 K/mm3 (0.00-0.23); BASOPHILS PERCENT AUTO 0 % (0-2); EOSINOPHILS ABSOLUTE AUTO 0.06 K/mm3 (0.00-0.68); EOSINOPHILS PERCENT AUTO 1 % (0-6); Hematocrit 32.7 % (33.0-51.0); Hemoglobin 10.6 g/dL (11.5-16.0); IMMATURE GRAN ABSOLUTE AUTO 0.03 K/mm3 (0.00-0.10); IMMATURE GRAN PERCENT AUTO 0 % (0-1); LYMPHOCYTES ABSOLUTE AUTO 1.79 K/mm3 (0.84-5.20); LYMPHOCYTES PERCENT AUTO 26 % (21-46); MONOCYTES ABSOLUTE AUTO 0.58 K/mm3 (0.16-1.47); MONOCYTES PERCENT AUTO 9 % (4-13); Mean Corpuscular HGB 31.8 pg (26.0-34.0); Mean Corpuscular HGB Conc 32.4 g/dL (31.5-36.5); Mean Corpuscular Volume 98 fL (80-100); Mean Platelet Volume 11.3 fL (9.1-12.4); NEUTROPHILS ABSOLUTE AUTO 4.31 K/mm3 (1.96-9.15); NEUTROPHILS PERCENT AUTO 64 % (41-73); Platelet Count 192 K/mm3 (150-400); RDW Standard Deviation 50.4 fL (35.1-46.3); Red Blood Cell Count 3.33 M/mm3 (3.80-5.20)
[2021-03-14 07:01] LABS: Alanine Aminotransfer (ALT/SGP 12 U/L (12-78); Albumin/Globulin Ratio 0.9 (0.8-1.8); Alk Phos 47 U/L (50-136); Anion Gap 7 mmol/L (6-16); Aspartate Aminotrans (AST/SGOT 9 U/L (12-37); Bilirubin, Total 0.8 mg/dL (0.1-1.0); Blood Urea Nitrogen 9 mg/dL (8-24); Bun/Creatinine Ratio 13.5 (12.0-20.0); CO2, Blood 25 mmol/L (21-32); Calcium, Blood 8.6 mg/dL (8.5-10.1); Chloride, Blood 108 mmol/L (98-108); Creatinine, Blood 0.67 mg/dL (0.40-1.00); Globulin, Blood 3.2 g/dL (2.2-4.0); Glomerular Filtration Rate >60 (60-); Glucose, Blood 92 mg/dL (70-99); Potassium, Blood 3.7 mmol/L (3.5-5.5); Sodium, Blood 140 mmol/L (136-145); Total Protein, Blood 6.2 g/dL (6.4-8.2)
[2021-03-14 10:42] LABS: Influenza A, PCR NEGATIVE (NEGATIVE); Influenza B, PCR NEGATIVE (NEGATIVE); Resp Syncytial Virus, PCR NEGATIVE (NEGATIVE); SARS-Cov-2 (COVID-19) PCR, MMC NEGATIVE (NEGATIVE)
--- NOTE | 2021-03-14 14:38 | NUR ---
PATIENT ADMIT TO MEDICAL FLOOR ROOM 314 AT 1350. ALERT AND ORIENTED X4. NEURO WNL. PERRLA. DENIES NUMBNESS/TINGLING. ON ROOM AIR, DENIES SOB. LUNGS SOUNDING CLEAR. NO TELE. BP AND HR STABLE. NO TEMP AT THIS TIME. ABLE TO STAND AND TRANSFER. GAIT STEADY. SCD'S IN PLACE. COMPLAINS OF LLQ ABDOMINAL PAIN. WORSE WITH MOVEMENT AND TALKING. MEDICATED ONCE PER EMAR WITH SOME RELIEF. LR INFUSING AT THIS TIME. ORIENTED TO UNIT/ROOM/CALL LIGHT. BED IN LOW LOCKED POSITION. WILL CONTINUE TO MONITOR.
--- NOTE | 2021-03-14 18:55 | NUR ---
SHIFT SUMMARY: NO ACUTE CHANGES, SEE PREVIOUS NOTE. PAIN MANAGED PER EMAR. PAITNE UP TO BATHROOM WITH 1 PERSON ASSIST. LAST BAG OF LR INFUSING AT THIS TIME. ZOSYN INFUSED. MOM AT BEDSIDE. PATIENT DENIES OTHER NEEDS AT THIS TIME. VITAL SIGNS REMAIN STABLE. WILL REPORT OFF TO ONCOMING RN.
[2021-03-15 04:52] LABS: Hematocrit 30.7 % (33.0-51.0); Hemoglobin 9.9 g/dL (11.5-16.0); Mean Corpuscular HGB 31.6 pg (26.0-34.0); Mean Corpuscular HGB Conc 32.2 g/dL (31.5-36.5); Mean Corpuscular Volume 98 fL (80-100); Mean Platelet Volume 11.4 fL (9.1-12.4); Platelet Count 163 K/mm3 (150-400); RDW Coefficient Variation 13.7 % (11.7-14.2); RDW Standard Deviation 49.4 fL (35.1-46.3); Red Blood Cell Count 3.13 M/mm3 (3.80-5.20); White Blood Cell Count 5.73 K/mm3 (4.00-11.30)
[2021-03-15 05:14] LABS: Albumin, Blood 2.7 g/dL (3.4-5.0); Anion Gap 9 mmol/L (6-16); Blood Urea Nitrogen 10 mg/dL (8-24); Bun/Creatinine Ratio 16.8 (12.0-20.0); CO2, Blood 23 mmol/L (21-32); Calcium, Blood 8.9 mg/dL (8.5-10.1); Chloride, Blood 110 mmol/L (98-108); Creatinine, Blood 0.59 mg/dL (0.40-1.00); Glomerular Filtration Rate >60 (60-); Glucose, Blood 67 mg/dL (70-99); Phosphorus, Blood 3.2 mg/dL (2.5-4.9); Potassium, Blood 3.6 mmol/L (3.5-5.5); Sodium, Blood 142 mmol/L (136-145)
--- NOTE | 2021-03-15 06:20 | NUR ---
SHIFT SUMMARY NO ACUTE CHANGES. PT UP TO BATHROOM WITH ASSISTANCE FEW TIMES. HAD PAIN MEDS CHANGED TO DILAUDID, PT STS THAT WORKS BETTER FOR HER. ANTIBIOTICS INFUSING. PAIN MEDS PER EMAR. CALL LIGHT WITHIN REACH. WILL CONTINUE TO MONITOR.
--- NOTE | 2021-03-15 18:45 | NUR ---
SHIFT SUMMARY PATIENT ALERT AND ORIENTED, PLEASANT AND COOPERATIVE WITH CARE. MEDICATED FOR PAIN TWICE TODAY. PATIENT IS SCHEDULED FOR SURGERY TOMORROW AT 1200. BOWEL PREP GIVEN. STRICT NPO AT 0600. CLINIMIX AT 75MLS/HR. NO ACUTE CHANGES.
--- NOTE | 2021-03-16 04:24 | NUR ---
SHIFT SUMMARY PT TO HAVE SURGERY TODAY AT NOON. NPO AT 0600. CLINIMIX WILL BE TURNED OFF AT THAT TIME. PT GIVEN BOWEL PREP AND HAS HAD SEVERAL BOWEL MOVEMENTS THROUGHOUT THE EVENING AND NIGHT. PT GETTING ZOSYN WELL, WILL START NEXT DOSE AT 0600. PT PLEASANT AND COOPERATIVE. CALL LIGHT WITHIN REACH AND WILL CONTINUE TO MONITOR.
--- NOTE | 2021-03-16 13:58 | NUR ---
03/16/21 1358 Mahamed Griggs PATIENT ON SCHEDULED ZOSYN. RECIEVED ADDITIONAL DOSE AT 1300 IN OR
--- NOTE | 2021-03-16 18:11 | NUR ---
PATIENT ARRIVED TO THE FLOOR VIA BED FROM PACU. PATIENT AWAKE AND ALERT, ABLE TO ANSWER QUESTIONS APPROPRIATELY. DENIES NAUSEA OR PAIN AT THIS TIME. PATIENT STATES SHE WANTS TO REST. VS STABLE. REFUSED RITALIN TONIGHT. NO SIGNS OR SYMPTOMS ACUTE DISTRESS NOTED AT THIS TIME. CALL LIGHT AND WATER IN EASY REACH. TOTH CATH IN PLACE DRAIGNING CLEAR YELLOW URINE INTO BSD BAG. INCISIONS TO ABD CDI, NO DRAINAGE NOTED. BOWEL SOUNDS ABSENT. WILL MONIOR.
[2021-03-17 04:42] LABS: Hematocrit 31.2 % (33.0-51.0); Hemoglobin 10.5 g/dL (11.5-16.0); Mean Corpuscular HGB 32.5 pg (26.0-34.0); Mean Corpuscular HGB Conc 33.7 g/dL (31.5-36.5); Mean Corpuscular Volume 97 fL (80-100); Mean Platelet Volume 11.9 fL (9.1-12.4); Platelet Count 209 K/mm3 (150-400); RDW Coefficient Variation 13.5 % (11.7-14.2); RDW Standard Deviation 48.4 fL (35.1-46.3); Red Blood Cell Count 3.23 M/mm3 (3.80-5.20); White Blood Cell Count 7.74 K/mm3 (4.00-11.30)
--- NOTE | 2021-03-17 05:39 | NUR ---
SHIFT SUMMARY: PT POD#1 FOR COLECTOMY. PT A&O X4. VS WNL. LAP SITES C/D/I WITH WOUND GLUE. NO DRG NOTED. ABD MIDLY DISTENDED. HYPOACTIVE BT. TOLERATING CLEARS. DENIES N/V. PAIN BEING MANAGED WITH 5MG OXY PER EMAR. TOTH CATHETER REMOVED. WAITING FOR POST VOID. ABX INFUSING PER EMAR.
[2021-03-17 05:42] LABS: Albumin, Blood 2.8 g/dL (3.4-5.0); Anion Gap 9 mmol/L (6-16); Blood Urea Nitrogen 7 mg/dL (8-24); CO2, Blood 25 mmol/L (21-32); Calcium, Blood 9.1 mg/dL (8.5-10.1); Chloride, Blood 107 mmol/L (98-108); Creatinine, Blood 0.64 mg/dL (0.40-1.00); Glomerular Filtration Rate >60 (60-); Glucose, Blood 121 mg/dL (70-99); Phosphorus, Blood 3.7 mg/dL (2.5-4.9); Potassium, Blood 3.8 mmol/L (3.5-5.5); Sodium, Blood 141 mmol/L (136-145)
--- NOTE | 2021-03-17 15:36 | NUR ---
PAPER RECLAIMING MACHINE OPERATOR IN TO SPEAK W/PT AND PT'S MOM. MEDICATED PER ORDERS FOR PAIN. DENIES ANY OTHER NEEDS AT THIS TIME.
--- NOTE | 2021-03-17 17:23 | NUR ---
SUMMARY NO ACUTE CHANGES T/O SHIFT. PT ABLE TO ADAT. MET W/AUTOMATIC PROFILE SANDER OPERATOR TWICE DURING SHIFT. HAS SIGNIFICANT PAIN W/AMBULATION. MEDICATED PER ORDERS FOR PAIN. PLACED ABDOMINAL BINDER FOR COMFORT; PT REPORTS EFFECTIVE. DENIED PASSING FLATUS THIS SHIFT. DENIES N/V OR SOB. USES CALL LIGHT APPROPRIATELY.
--- NOTE | 2021-03-18 04:31 | NUR ---
FORM SETTER SUPERVISOR SUMMARY PT IS POST-OP DAY 2 FOR COLECTOMY. PT IS FULL CODE. PT HAD MULTIPLE LIQUID BMS THROUGHOUT THE NIGHT AND IS PASSING FLATUS. CONTINUES TO COMPLAIN OF PAIN TO THE ABDOMEN THAT WORSENS WHEN SHE AMBULATES TO THE RESTROOM. MEDICATED PER EMAR. PT ALERT AND ORIENTED. DRINKING LIQUIDS WITHOUT NAUSEA OR VOMITING. PT'S BLOOD PRESSURE WAS 95/50 BUT PT WAS ASYMPTOMATIC. PT GIVEN PAIN MEDICATION BUT ADVISED TO CALL FOR ASSISTANCE IF NEEDED. SHE CONTINUES TO REST IN BED AT THIS TIME.
[2021-03-18 08:19] LABS: Hematocrit 28.9 % (33.0-51.0); Hemoglobin 9.3 g/dL (11.5-16.0); Mean Corpuscular HGB 32.1 pg (26.0-34.0); Mean Corpuscular HGB Conc 32.2 g/dL (31.5-36.5); Mean Corpuscular Volume 100 fL (80-100); Mean Platelet Volume 11.6 fL (9.1-12.4); Platelet Count 196 K/mm3 (150-400); RDW Coefficient Variation 13.7 % (11.7-14.2); RDW Standard Deviation 50.5 fL (35.1-46.3); White Blood Cell Count 5.69 K/mm3 (4.00-11.30)
--- NOTE | 2021-03-18 14:19 | NUR ---
Made Spiritual Care visit. I had attempted an earlier visit when the pt. was on the phone, but the pt. requested that I return. Upon return, pt. was alert and sitting up in bed. The pt. 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 Pt. verbalized frustration regarding the length of time dealing with her illness. Today Pt. seemed in good spirits but still under discomfort. Pt. was concerned about "out-pacing her recovery. Explored issues of raji and belief as the pt. has pursued multiple sources of raji. Facilitated a life review. Prayed with pt. and pt. welcomed a return visit. I will plan to return to her room in the days ahead.
--- NOTE | 2021-03-18 15:56 | NUR ---
BLOATED PT REPORTS FEELS SLIGHTLY BLOATED. ENCOURAGED AMBULATION. ADVISED PT EAT LIGHT DINNER TO AVOID INCREASING BLOATING AND DISCOMFORT. PT DENIES ANY NEEDS AT THIS TIME.
--- NOTE | 2021-03-18 16:00 | NUR ---
REPORT GIVEN TO MIKAEL Mirza RN.
--- NOTE | 2021-03-19 06:45 | NUR ---
POD 3 S/P COLECTOMY. PT VSS T/O NIGHT. INCISIONS CDI. PAIN MGD W/TYLENOL AND AMBULATION. PT REQ TO LIMIT NARCOTIC MEDS. PT ZENAIDA REG PO, NO N/V, BT ACTIVE, PT PASSING FLATUS AND LIQ BM. PT INDEP IN ROOM.
[2021-03-19] MEDS ORDERED: Acetaminophen650 M1 PO (07:58)
[2021-03-19] MEDS ORDERED: OXYC5 PO (11:22)
--- NOTE | 2021-03-19 12:10 | NUR ---
Pt is A&O, pleasant with cares. VSS on RA. Pain reported in abdomen, scheduled tylenol given. Pt reported nausea in AM, prn zofran given. Pt reported the nausea after breakfast.
--- NOTE | 2021-03-19 12:56 | NUR ---
Pt d/c home with friend providing ride. Pt reported some anxiety prior to leaving, but denied for me to contact doctor for any prn meds.
== END 2021-03-19 12:55 | disposition home or self-care (01) | DRG 330 ==
LOC: ER 18:14 → MEDS 21:30 → SURS 21:30 → ERHOLD 21:30 → MEDS 03-14 13:52 → SURS 03-16 11:31
PROVIDERS: Internal Medicine; Physician Assistant; Student in an Organized Health Care Education/Training Program; Surgery; ADMIT Internal Medicine
PROC: 0DSL4ZZ Reposition Transverse Colon, Percutaneous Endoscopic Approach (ICD-10-PCS; 2021-03-16)
PROC: 0DBN4ZZ Excision of Sigmoid Colon, Percutaneous Endoscopic Approach (ICD-10-PCS; principal; 2021-03-16 11:45)
DX: K57.20 Diverticulitis of large intestine with perforation and abscess without bleeding (principal); K51.90 Ulcerative colitis, unspecified, without complications; Z20.822 Contact with and (suspected) exposure to COVID-19; G43.909 Migraine, unspecified, not intractable, without status migrainosus; D64.9 Anemia, unspecified; F90.9 Attention-deficit hyperactivity disorder, unspecified type; B02.9 Zoster without complications; Z98.890 Other specified postprocedural states; Z79.899 Other long term (current) drug therapy
CPT/HCPCS: 0241U; 36415; 74177; 80053; 80069; 81001; 85025; 85027; 86140; 87086; 88307; 94762; 96365; 96366; 96372; 96375; 96376; 99285-25; A9270; J1100; J1170; J1650; J1885; J2370; J2405; J2543; J2704; J2710; J3010; J7040; J7120; Q9967

== ENCOUNTER → 2021-04-18 | Outpatient (CLI) | payer OTHER, MEDICARE ==
[~2021-04-18] MED LIST changes: +OXYC5 PO
[2021-04-18 11:58] LABS: Source, Urine Clean Catch
[2021-04-18 12:36] LABS: Bilirubin, Urine Neg (Neg); Blood, Urine 1+ (Neg); Glucose Qualitative, Urine Neg (Neg); Ketones, Urine Neg (Neg); Leukocyte Esterase, Urine 3+ (Neg); Nitrite, Urine Neg (Neg); Protein, Urine Neg (Neg); Specific Gravity, Urine 1.015 (1.003-1.022); Urobilinogen, Urine NORM (Normal)
[2021-04-18 12:41] LABS: Color, Urine Pale Yellow (P-Yellow)
[2021-04-18 12:42] LABS: Appearance, Urine Clear (Clear)
[2021-04-18 12:43] LABS: Squamous Epithelial Cells Few /hpf (Few)
[2021-04-18 12:44] LABS: Amorphous Light (0-Heavy); Bacteria Many /hpf; Mucus Mod (0-Heavy)
== END ==
LOC: LAB SHORT 11:56
PROVIDERS: Surgery
DX: R33.9 Retention of urine, unspecified (principal)
CPT/HCPCS: 81001; 87086

== ENCOUNTER → 2021-05-02 | Outpatient (CLI) | payer OTHER, MEDICARE | LOC: LAB SHORT 17:05 | DX: N39.0 Urinary tract infection, site not specified (principal); D25.9 Leiomyoma of uterus, unspecified; R33.9 Retention of urine, unspecified | CPT/HCPCS: 87086 ==

== ENCOUNTER → 2021-05-16 | Outpatient (CLI) | payer OTHER | LOC: LAB SHORT 17:22 | DX: R35.0 Frequency of micturition (principal) | CPT/HCPCS: 87086 ==

== ENCOUNTER → 2021-06-11 | Outpatient (CLI) | payer OTHER | END | disposition home or self-care (01) | LOC: LAB SHORT 13:45 | DX: R10.9 Unspecified abdominal pain (principal) | CPT/HCPCS: 87086 ==

== ENCOUNTER → 2021-07-04 | Outpatient (CLI) | payer OTHER ==
[~2021-07-04] MED LIST changes: -ALBU90OI; +ALBU90OI INH; +DIAZ5 PO; +Vitamin C100 M1 PO
[2021-07-04 14:23] LABS: C DIFFICILE DNA POSITIVE (Negative)
== END | disposition home or self-care (01) ==
LOC: LAB 12:07 → LAB SHORT 12:07
PROVIDERS: Internal Medicine Gastroenterology
DX: K62.5 Hemorrhage of anus and rectum (principal)
CPT/HCPCS: 87324; 87493

== ENCOUNTER 2021-07-24 01:04 | Emergency (ER) | payer OTHER ==
[~2021-07-24] VITALS: Ht 154.9 cm; Wt 47.2 kg
[~2021-07-24 01:04] MED LIST changes: +ALBU90OI; -ALBU90OI INH; -DIAZ5 PO; -Vitamin C100 M1 PO
[2021-07-24 02:14] LABS: BASOPHILS ABSOLUTE AUTO 0.05 K/mm3 (0.00-0.23); BASOPHILS PERCENT AUTO 0 % (0-2); EOSINOPHILS ABSOLUTE AUTO 0.03 K/mm3 (0.00-0.68); EOSINOPHILS PERCENT AUTO 0 % (0-6); Hematocrit 33.7 % (33.0-51.0); Hemoglobin 11.2 g/dL (11.5-16.0); IMMATURE GRAN ABSOLUTE AUTO 0.05 K/mm3 (0.00-0.10); IMMATURE GRAN PERCENT AUTO 0 % (0-1); LYMPHOCYTES ABSOLUTE AUTO 1.51 K/mm3 (0.84-5.20); LYMPHOCYTES PERCENT AUTO 13 % (21-46); MONOCYTES PERCENT AUTO 7 % (4-13); Mean Corpuscular HGB 33.2 pg (26.0-34.0); Mean Corpuscular HGB Conc 33.2 g/dL (31.5-36.5); Mean Corpuscular Volume 100 fL (80-100); Mean Platelet Volume 10.9 fL (9.1-12.4); NEUTROPHILS ABSOLUTE AUTO 9.26 K/mm3 (1.96-9.15); NEUTROPHILS PERCENT AUTO 79 % (41-73); Platelet Count 214 K/mm3 (150-400); RDW Coefficient Variation 12.7 % (11.7-14.2); Red Blood Cell Count 3.37 M/mm3 (3.80-5.20)
[2021-07-24 02:32] LABS: Alanine Aminotransfer (ALT/SGP 19 U/L (12-78); Albumin, Blood 3.6 g/dL (3.4-5.0); Alk Phos 56 U/L (50-136); Anion Gap 10 mmol/L (6-16); Aspartate Aminotrans (AST/SGOT 17 U/L (12-37); Bilirubin, Total 0.9 mg/dL (0.1-1.0); Blood Urea Nitrogen 11 mg/dL (8-24); Bun/Creatinine Ratio 21.4 (12.0-20.0); CO2, Blood 24 mmol/L (21-32); Calcium, Blood 9.1 mg/dL (8.5-10.1); Chloride, Blood 103 mmol/L (98-108); Creatinine, Blood 0.51 mg/dL (0.40-1.00); Globulin, Blood 3.6 g/dL (2.2-4.0); Glomerular Filtration Rate >60 (60-); Glucose, Blood 76 mg/dL (70-99); Potassium, Blood 3.6 mmol/L (3.5-5.5); Sodium, Blood 137 mmol/L (136-145); Total Protein, Blood 7.2 g/dL (6.4-8.2)
[2021-07-24] MEDS ORDERED: AMOCLA875 PO (06:18)
[2021-07-24] MEDS ORDERED: OXAYDO5 M1 PO (06:18)
[2021-07-24] MEDS ORDERED: ONDA4ODT MM (06:18)
== END 2021-07-24 08:17 | disposition home or self-care (01) ==
LOC: ER 01:04
PROVIDERS: Student in an Organized Health Care Education/Training Program
DX: K57.32 Diverticulitis of large intestine without perforation or abscess without bleeding (principal); K52.9 Noninfective gastroenteritis and colitis, unspecified; Z90.49 Acquired absence of other specified parts of digestive tract; Z87.19 Personal history of other diseases of the digestive system; Z79.899 Other long term (current) drug therapy
CPT/HCPCS: 36415; 74177; 80053; 83605; 85025; J0744; J1170; J2405; J7030; Q9967

== ENCOUNTER 2021-10-16 11:47 | Day surgery (SDC) | payer OTHER ==
[~2021-10-16] VITALS: Ht 154.9 cm; Wt 51.0 kg
[~2021-10-16 11:47] MED LIST changes: -ALBU90OI; +ALBU90OI INH; +DIAZ5 PO; +Vitamin C100 M1 PO
--- NOTE | 2021-10-16 12:39 | NUR ---
Ambulatory in Day Surgery. History, Chart, Medications and Allergies reviewed before start of procedure. Lungs clear T/O to Auscultation. Patient confirms NPO status and agrees with scheduled surgery. Pre-Op teaching done. Pt verbalizes understanding. Patient States Post-Procedure ride home has been arranged.
--- NOTE | 2021-10-16 13:24 | NUR ---
10/16/21 1324 Edwin Murdock HISTORY, CHART, MEDICATIONS AND ALLERGIES REVIEWED BEFORE START OF PROCEDURE. PATIENT CONFIRMS NPO STATUS AND AGREES WITH SCHEDULED PROCEDURE. 3-LEAD EKG REVIEWED WITH PHYSICIAN PRIOR TO START OF PROCEDURE. MONITOR INTACT WITH CONTINUOUS PULSE OXIMETRY,CAPNOGRAPHY, 3-LEAD EKG, INTERMITTENT BP. SUPPLEMENTAL O2 TO BE TITRATED THROUGHOUT PROCEDURE TO MAINTAIN O2 SATURATION ABOVE 90%. PATIENT DETERMINED TO BE ASA APPROPRIATE FOR PROPOFOL SEDATION PRIOR TO START OF PROCEDURE BY DR. EDWARDS
--- NOTE | 2021-10-16 14:22 | NUR ---
Patient up to Ambulate independently. Gait steady. Discharge instructions reviewed with patient. Patient verbalizes understanding. Copy given to patient to take home. Patient States Post-Procedure ride home has been arranged WITH DENISE. Discharged via wheelchair to private car for ride home.
== END 2021-10-16 14:23 | disposition home or self-care (01) ==
LOC: ORSCMMR 11:47 → ORD 13:00 → ORSCMMR 14:23
PROVIDERS: Surgery
PROC: 0DBE8ZX Excision of Large Intestine, Via Natural or Artificial Opening Endoscopic, Diagnostic (ICD-10-PCS; principal; 2021-10-16 13:00)
PROC: 0DBL8ZX Excision of Transverse Colon, Via Natural or Artificial Opening Endoscopic, Diagnostic (ICD-10-PCS; principal; 2021-10-16 13:00)
DX: K62.5 Hemorrhage of anus and rectum (principal); Z87.19 Personal history of other diseases of the digestive system; K57.30 Diverticulosis of large intestine without perforation or abscess without bleeding; K64.8 Other hemorrhoids; F41.9 Anxiety disorder, unspecified; K21.9 Gastro-esophageal reflux disease without esophagitis; F90.9 Attention-deficit hyperactivity disorder, unspecified type; Z79.899 Other long term (current) drug therapy
CPT/HCPCS: 88305; J2704; J7120

== ENCOUNTER 2021-12-05 12:07 | Emergency (ER) | payer OTHER ==
[~2021-12-05] VITALS: Ht 154.9 cm; Wt 52.2 kg
[2021-12-05 13:28] LABS: BASOPHILS ABSOLUTE AUTO 0.03 K/mm3 (0.00-0.23); BASOPHILS PERCENT AUTO 0 % (0-2); EOSINOPHILS ABSOLUTE AUTO 0.06 K/mm3 (0.00-0.68); EOSINOPHILS PERCENT AUTO 1 % (0-6); Hematocrit 41.3 % (33.0-51.0); Hemoglobin 13.6 g/dL (11.5-16.0); IMMATURE GRAN ABSOLUTE AUTO 0.03 K/mm3 (0.00-0.10); IMMATURE GRAN PERCENT AUTO 0 % (0-1); LYMPHOCYTES ABSOLUTE AUTO 2.06 K/mm3 (0.84-5.20); LYMPHOCYTES PERCENT AUTO 28 % (21-46); MONOCYTES ABSOLUTE AUTO 0.59 K/mm3 (0.16-1.47); MONOCYTES PERCENT AUTO 8 % (4-13); Mean Corpuscular HGB 31.6 pg (26.0-34.0); Mean Corpuscular HGB Conc 32.9 g/dL (31.5-36.5); Mean Corpuscular Volume 96 fL (80-100); Mean Platelet Volume 10.1 fL (9.1-12.4); NEUTROPHILS ABSOLUTE AUTO 4.59 K/mm3 (1.96-9.15); NEUTROPHILS PERCENT AUTO 62 % (41-73); Platelet Count 225 K/mm3 (150-400); RDW Coefficient Variation 12.8 % (11.7-14.2); RDW Standard Deviation 45.1 fL (35.1-46.3); White Blood Cell Count 7.36 K/mm3 (4.00-11.30)
[2021-12-05 13:38] LABS: Albumin, Blood 3.4 g/dL (3.4-5.0); Albumin/Globulin Ratio 0.8 (0.8-1.8); Bilirubin, Total 0.4 mg/dL (0.1-1.0); Bun/Creatinine Ratio 25.7 (12.0-20.0); Calcium, Blood 9.3 mg/dL (8.5-10.1); Creatinine, Blood 0.62 mg/dL (0.40-1.00); Potassium, Blood 3.8 mmol/L (3.5-5.5); Total Protein, Blood 7.4 g/dL (6.4-8.2)
[2021-12-05 14:16] LABS: Source, Urine Clean Catch
[2021-12-05 14:24] LABS: Appearance, Urine Clear (Clear); Bilirubin, Urine Neg (Neg); Blood, Urine Neg (Neg); Color, Urine Yellow (P-Yellow); Glucose Qualitative, Urine Neg (Neg); Ketones, Urine Neg (Neg); Leukocyte Esterase, Urine Neg (Neg); Nitrite, Urine Neg (Neg); Protein, Urine Neg (Neg); Urobilinogen, Urine NORM (Normal)
[2021-12-05 14:46] LABS: U Amphetamine Screen Not Detected; U Barbituate Screen Not Detected; U Benzodiazapine Screen DETECTED; U Buprenorphine Screen Not Detected; U Cannabinoids Screen Not Detected; U Cocaine Screen Not Detected; U Methadone Screen Not Detected; U Methamphetamine Screen Not Detected; U Opiates Screen Not Detected; U Oxycodone Screen Not Detected; U Phencyclidine Screen Not Detected; U Propoxyphene Screen Not Detected
== END 2021-12-05 15:31 | disposition home or self-care (01) ==
LOC: ER 12:07
PROVIDERS: Emergency Medicine; Student in an Organized Health Care Education/Training Program
DX: R07.2 Precordial pain (principal); Z79.899 Other long term (current) drug therapy
CPT/HCPCS: 36415; 71045; 71275; 80053; 81003; 83690; 84484; 85025; 93005; 93010; Q9967

== ENCOUNTER 2022-10-27 07:25 | Day surgery (SDC) | payer OTHER | END 2022-10-27 23:00 | disposition home or self-care (01) | LOC: CT 07:25 | DX: R07.89 Other chest pain (principal); Z90.49 Acquired absence of other specified parts of digestive tract; Z79.899 Other long term (current) drug therapy | CPT/HCPCS: 75574; Q9967 ==

== ENCOUNTER 2023-05-20 13:15 | Day surgery (SDC) | payer OTHER ==
[~2023-05-20] VITALS: Ht 154.9 cm; Wt 61.8 kg
[~2023-05-20 13:15] MED LIST changes: +Atropine Sulfate 0.1 MG/ML 10ML SYR ONE; +Glycopyrrolate 0.2 MG/ML 1MLVIAL ONE; +Lactated Ringer's 1,000 ML IV ONE; +Lidocaine 2% 5 ML SDV ONE; +Lidocaine HCl/Pf 1% 5 ML VIAL ONE; +Methylene Blue 1% 100 MG/10 ML VIAL ONE; +Ondansetron HCl 2 MG / ML 2ML Vial ONE; +ePHEDrine Sulfate 50 MG/ML 1ML Injection ONE; +propofoL 50 ML IV ONE
[2023-05-20] MEDS ORDERED: Lactated Ringer's 1,000 ML IV ONE (14:09)
[2023-05-20] MEDS ORDERED: Midazolam HCL 1 MG/ML 5MLVIAL ONE (15:29)
[2023-05-20] MEDS ORDERED: propofoL 50 ML IV ONE (15:49)
[2023-05-20 16:53] VITALS: BP 98/50
== END 2023-05-20 16:52 | disposition home or self-care (01) ==
LOC: ORSCSDS 13:15
PROVIDERS: Internal Medicine Gastroenterology
PROC: 0DB78ZX Excision of Stomach, Pylorus, Via Natural or Artificial Opening Endoscopic, Diagnostic (ICD-10-PCS; principal; 2023-05-20 14:30)
PROC: 0DB98ZX Excision of Duodenum, Via Natural or Artificial Opening Endoscopic, Diagnostic (ICD-10-PCS; principal; 2023-05-20 14:30)
PROC: 0DBE8ZX Excision of Large Intestine, Via Natural or Artificial Opening Endoscopic, Diagnostic (ICD-10-PCS; principal; 2023-05-20 14:30)
PROC: 0D757ZZ Dilation of Esophagus, Via Natural or Artificial Opening (ICD-10-PCS; principal; 2023-05-20 14:30)
PROC: 0DB58ZX Excision of Esophagus, Via Natural or Artificial Opening Endoscopic, Diagnostic (ICD-10-PCS; principal; 2023-05-20 14:30)
DX: K51.00 Ulcerative (chronic) pancolitis without complications (principal); R13.10 Dysphagia, unspecified; K21.9 Gastro-esophageal reflux disease without esophagitis; K29.70 Gastritis, unspecified, without bleeding; K63.5 Polyp of colon; K64.8 Other hemorrhoids; Z86.010 Personal history of colon polyps; K57.30 Diverticulosis of large intestine without perforation or abscess without bleeding; J45.909 Unspecified asthma, uncomplicated; Z79.899 Other long term (current) drug therapy
CPT/HCPCS: J0461; J2001; J2250; J2405; J2704; J7120; Q9968

== ENCOUNTER 2024-05-05 21:43 | Inpatient (IN) | payer OTHER ==
[~2024-05-05] VITALS: Ht 154.9 cm; Wt 59.0 kg
[~2024-05-05 21:43] MED LIST changes: -Atropine Sulfate 0.1 MG/ML 10ML SYR ONE; -Glycopyrrolate 0.2 MG/ML 1MLVIAL ONE; -Lactated Ringer's 1,000 ML IV ONE; -Lidocaine 2% 5 ML SDV ONE; -Lidocaine HCl/Pf 1% 5 ML VIAL ONE; -Methylene Blue 1% 100 MG/10 ML VIAL ONE; -Ondansetron HCl 2 MG / ML 2ML Vial ONE; -ePHEDrine Sulfate 50 MG/ML 1ML Injection ONE; -propofoL 50 ML IV ONE
[2024-05-05] MEDS ORDERED: FentaNYL Citrate 50 MCG/ML 2 ML Injection IV PRN (22:15)
[2024-05-05 22:17] LABS: BASOPHILS ABSOLUTE AUTO 0.04 K/mm3 (0.00-0.23); BASOPHILS PERCENT AUTO 0 % (0-2); EOSINOPHILS ABSOLUTE AUTO 0.09 K/mm3 (0.00-0.68); EOSINOPHILS PERCENT AUTO 1 % (0-6); Hematocrit 38.2 % (33.0-51.0); IMMATURE GRAN ABSOLUTE AUTO 0.03 K/mm3 (0.00-0.10); IMMATURE GRAN PERCENT AUTO 0 % (0-1); LYMPHOCYTES PERCENT AUTO 28 % (21-46); MONOCYTES ABSOLUTE AUTO 0.67 K/mm3 (0.16-1.47); MONOCYTES PERCENT AUTO 6 % (4-13); Mean Corpuscular Volume 97 fL (80-100); Mean Platelet Volume 10.8 fL (9.1-12.4); NEUTROPHILS PERCENT AUTO 65 % (41-73); Platelet Count 252 K/mm3 (150-400); RDW Coefficient Variation 12.1 % (11.7-14.2); RDW Standard Deviation 43.5 fL (35.1-46.3); Red Blood Cell Count 3.94 M/mm3 (3.80-5.20); White Blood Cell Count 10.83 K/mm3 (4.00-11.30)
[2024-05-05 22:32] LABS: Albumin, Blood 3.8 g/dL (3.4-5.0); Albumin/Globulin Ratio 0.9 (0.8-1.8); Bilirubin, Total 0.6 mg/dL (0.1-1.0); Bun/Creatinine Ratio 14.4 (12.0-20.0); Calcium, Blood 10.2 mg/dL (8.5-10.1); Creatinine, Blood 0.7 mg/dL (0.40-1.00); Globulin, Blood 4.1 g/dL (2.2-4.0); Potassium, Blood 3.8 mmol/L (3.5-5.5); Total Protein, Blood 7.9 g/dL (6.4-8.2)
[2024-05-05] MEDS ORDERED: HYDROmorphone HCl/Pf 1MG SYR IV ONE (22:55)
[2024-05-05] MEDS ORDERED: NS 1,000 ML IV SCH (22:55)
[2024-05-06] MEDS ORDERED: MetroNIDAZOLE 500MG/NS 100 ml 100 ML IV ONE (00:30)
[2024-05-06] MEDS ORDERED: CefTRIAXone Sodium 1,000 MG in NS 50 ML IV ONE (00:30)
[2024-05-06 03:00] LABS: Source, Urine Clean Catch
[2024-05-06 03:02] LABS: Bilirubin, Urine Neg (Neg); Blood, Urine Neg (Neg); Glucose Qualitative, Urine Neg (Neg); Ketones, Urine Neg (Neg); Leukocyte Esterase, Urine Neg (Neg); Nitrite, Urine Neg (Neg); Protein, Urine 2+ (Neg); Specific Gravity, Urine 1.015 (1.003-1.022); Urobilinogen, Urine NORM (Normal)
[2024-05-06 03:44] LABS: Appearance, Urine Clear (Clear); Color, Urine Yellow (P-Yellow)
[2024-05-06 03:45] LABS: Bacteria Few /hpf; Red Blood Cells, Urine 0-2 /hpf (0-2); Squamous Epithelial Cells Few /hpf (Few); White Blood Cells, Urine 0-2 /hpf (0-5)
[2024-05-06] MEDS ORDERED: HYDROmorphone HCl/Pf 1MG SYR IV ONE (06:05)
[2024-05-06] MEDS ORDERED: Bisacodyl 10 MG Supp PR PRN (07:25)
[2024-05-06] MEDS ORDERED: TraZODone HCl 50 MG Tab PO PRN (07:25)
[2024-05-06] MEDS ORDERED: OxyCODONE 7.5 mg/Acetam 325 mg TABLET PO PRN ×2 (07:25→07:35)
[2024-05-06] MEDS ORDERED: HYDROmorphone HCl/Pf 1MG SYR IV PRN (07:30)
[2024-05-06] MEDS ORDERED: FLU VACC TS2024-25(6MOS UP)/PF 45 MCG/0.5 ML SYRINGE IM SCH (07:30)
[2024-05-06] MEDS ORDERED: Lactated Ringer's 1,000 ML IV SCH (07:30)
[2024-05-06] MEDS ORDERED: Magnesium Hydroxide Conc 10 ML UDC PO PRN (07:30)
[2024-05-06] MEDS ORDERED: Ondansetron 4 MG TAB PO PRN (07:30)
[2024-05-06] MEDS ORDERED: CATAPRES0.1 MG PO (08:58)
[2024-05-06] MEDS ORDERED: Ciprofloxacin 400MG/D5 200ML 200 ML IV SCH (09:00)
[2024-05-06] MEDS ORDERED: Lactobacil 2-S.Thermo-Bifido 1 1 Cap PO SCH (09:00)
[2024-05-06] MEDS ORDERED: Methylphenidate HCL 10 MG TAB PO SCH (09:00)
[2024-05-06 10:25] VITALS: BP 111/45
[2024-05-06] MEDS ORDERED: Acetaminophen/Aspirin/Caffeine 250/250/65 MG PO PRN (10:50)
--- NOTE | 2024-05-06 11:03 | NUR ---
ADMISSION NOTE PATIENT A/OX4, INDEPENDENT IN ROOM. COMPLAINING OF ABDOMINAL PAIN UPON ARRIVAL. ADMINISTERED FENTANYL PER MAY. ALSO COMPLAINING OF A HEADACHE AND REQUESTING MD ASTRID NOTIFIED AND ORDER RECIEVED. FLUIDS RUNNING PER MAY. VITAL SIGNS STABLE. PATIENT ORIENTED TO CALL LIGHT SYSTEM AND HER ROOM. WILL CONTINUE TO MONITOR.
[2024-05-06 16:18] VITALS: BP 107/52
--- NOTE | 2024-05-06 18:45 | NUR ---
SHIFT SUMMARY PATIENT A/OX4, ABLE TO MAKE NEEDS KNOWN. PLEASANT AND COOPERATIVE WITH CARE. IV FLUIDS RUNNING PER MAY. PATIENT COMPLAINING OF RLQ PAIN, MULTIPLE PRNs GIVEN PER MAR INCLUDING FENTANYL, DILAUDID, AND PERCOCET. PATIENT INDEPENDENT IN ROOM. PATIENT ALSO COMPLAINING OF HEADACHE UPON ADMISSION AND ONE TIME ORDER FOR EXCEDRIN ADMINISTERED. PATIENT WITH FRIEND AT BEDSIDE CURRENTLY. NO OTHER CONCERNS AT THIS TIME.
[2024-05-06] MEDS ORDERED: ValACYClovir HCL 500 MG Tab PO SCH (21:00)
[2024-05-06 21:18] VITALS: BP 114/58
[2024-05-07] MEDS ORDERED: Pantoprazole Sodium 20 MG Tab PO SCH (00:20)
--- NOTE | 2024-05-07 00:36 | NUR ---
0030: C/O GERD AND REQUESTS PROTONIX. REC'D ORDER FROM HOSPITALIST. SEE MAR
--- NOTE | 2024-05-07 04:49 | NUR ---
AAOX4. INDEPENDENT IN ROOM. RA. MEDICATED FOR NAUSEA AND GERD. AWAKE MOST OF THE NIGHT, D/T SLEEPING YESTERDAY.
[2024-05-07 05:20] VITALS: BP 95/50
[2024-05-07 05:46] LABS: Hemoglobin 10.3 g/dL (11.5-16.0); Mean Corpuscular HGB 32.8 pg (26.0-34.0); Mean Corpuscular HGB Conc 33.2 g/dL (31.5-36.5); Mean Corpuscular Volume 99 fL (80-100); Mean Platelet Volume 10.9 fL (9.1-12.4); Platelet Count 177 K/mm3 (150-400); RDW Coefficient Variation 12.2 % (11.7-14.2); RDW Standard Deviation 44.6 fL (35.1-46.3); Red Blood Cell Count 3.14 M/mm3 (3.80-5.20)
[2024-05-07 06:07] LABS: Calcium, Blood 9.2 mg/dL (8.5-10.1); Creatinine, Blood 0.57 mg/dL (0.40-1.00); Magnesium, Blood 1.8 mg/dL (1.6-2.4); Potassium, Blood 3.4 mmol/L (3.5-5.5)
[2024-05-07] MEDS ORDERED: Potassium Chloride 20 MEQ/15 ML UDC PO ONE (07:20)
[2024-05-07 07:40] VITALS: BP 103/60
[2024-05-07] MEDS ORDERED: NS 250 ML IV PRN (08:20)
[2024-05-07] MEDS ORDERED: Enoxaparin 40 MG/0.4 ML SYR SC SCH (09:00)
[2024-05-07] MEDS ORDERED: CIPR500 PO (12:18)
[2024-05-07] MEDS ORDERED: Percocet 5-3251 EACH PO (12:19)
--- NOTE | 2024-05-07 13:05 | NUR ---
DISCHARGE NOTE PATIENT A/OX4, ABLE TO MAKE NEEDS KNOWN. PLEASANT AND COOPERATIVE WITH CARE. PATIENT COMPLAINING OF RLQ PAIN THAT IS MANAGEABLE WITH PO PAIN MEDICATION. PERCOCET ADMINISTERED X1 THIS AM. IV REMOVED PRIOR TO DISCHARGE. AT TIME OF DISCHARGE EDUCATION WAS PROVIDED REGARDING NEW PRESCRIPTIONS AND FOLLOW UP APPOINTMENT IN 2-4 WEEKS WITH PRIMARY CARE IF SYMTPOMS DO NOT RESOLVE. PATIENT EDUCATED TO CONTINUE WITH FULL LIQUID DIET AT HOME. PATIENT WITH NO QUESTIONS OR CONCERNS AT TIME OF DISCHARGE AND WAS ASSISTED TO FRIEND'S VEHICLE WITH ALL BELONGINGS IN HAND.
== END 2024-05-07 13:05 | disposition home or self-care (01) | DRG 392 ==
LOC: ER 21:43 → MEDS 21:44 → ERHOLD 21:44 → MEDS 05-06 10:25
PROVIDERS: Student in an Organized Health Care Education/Training Program; ADMIT Hospitalist
DX: K57.92 Diverticulitis of intestine, part unspecified, without perforation or abscess without bleeding (principal); G43.909 Migraine, unspecified, not intractable, without status migrainosus; J45.909 Unspecified asthma, uncomplicated; E86.0 Dehydration; F98.8 Other specified behavioral and emotional disorders with onset usually occurring in childhood and adolescence; Z79.899 Other long term (current) drug therapy; Z87.19 Personal history of other diseases of the digestive system
CPT/HCPCS: 36415; 74177; 80048; 80053; 81001; 83605; 83690; 83735; 85025; 85027; 96365; 96367; 96372; 96375; 96376; 99285-25; A9270; G0378; J0696; J0744; J1171; J1650; J2470; J3010; J7030; J7120; Q9967